=== PATIENT | male | born 1955 | race Caucasian/White ===

== ENCOUNTER 2020-07-16 05:34 | Day surgery (SDC) | payer OTHER ==
[2020-07-16] MEDS ORDERED: Dextrose 5%-Lactated Ringers 1,000 ML IV SCH (06:00)
[2020-07-16] MEDS ORDERED: Midazolam 1 MG/ML 2 ML SDV ONE (06:46)
[2020-07-16] MEDS ORDERED: fentaNYL 100 MCG/2 ML SDV ONE (06:46)
[2020-07-16] MEDS ORDERED: Propofol 200 MG/20 ML SDV ONE (06:46)
--- NOTE | 2020-07-27 15:11 | OR ---
DATE OF PROCEDURE: 07/16/2020 SURGEON: Rustam Webster MD PREOPERATIVE DIAGNOSIS: Positive Cologuard exam. POSTOPERATIVE DIAGNOSES: Positive Cologuard exam associated with: 1. Limited left colonic diverticulosis. 2. Prolapsing (reducible) excoriated hemorrhoids. OPERATIVE PROCEDURE: Flexible colonoscopy. ANESTHESIA: IV sedation. INDICATIONS FOR PROCEDURE: This is a 64-year-old male who had a positive Cologuard test and is to undergo flexible colonoscopy with biopsies and/or polypectomy as indicated. Potential risks including bleeding and perforation were discussed, and the patient wishes to proceed. DETAILS OF PROCEDURE: The patient was taken to the operating room and placed in a left lateral decubitus position. IV sedation was administered after which the initial examination of the anal area showed a roughly pea-sized, bulging hemorrhoid that had prolapsed. This was not overly congested or problematic per se and was easily reduced. Digital exam at that point was otherwise unremarkable. Colonoscope was passed into the rectum, which showed some mildly excoriated hemorrhoids. The scope was then eventually passed into the cecum. The prep was quite good with limited amount of liquid stool present. The patient had some uncomplicated colonic diverticulosis in the left colon, but otherwise, there were no areas of colitis. No polyps or other signs of neoplasia. Scope was then withdrawn, the above findings were reconfirmed, and the procedure was then concluded. Given the patient did have rectal exam that is suggestive of colon neoplasia, the next colonoscopy could be performed in 10 years. If any prolapsed hemorrhoid becomes more problematic, referral at that point could be undertaken. Rustam Webster MD /[id number]
== END 2020-07-16 09:29 | disposition home or self-care (01) ==
LOC: JP.SDS 05:34
PROVIDERS: ATTEND Surgery
DX: K57.30 Diverticulosis of large intestine without perforation or abscess without bleeding (principal); K64.8 Other hemorrhoids
CPT/HCPCS: 45378; J2250; J2704; J3010; J7121